=== PATIENT | female | born 1960 | race Caucasian/White ===

== ENCOUNTER 2016-04-14 10:41 | Emergency (ER) | payer BC, OTHER ==
[~2016-04-14] VITALS: Ht 157.5 cm; Wt 95.0 kg
[~2016-04-14 10:41] MED LIST: CLR10 PO; IBUP-1459 PO
[2016-04-14 10:46] VITALS: TEMP 36.5; Ht 157.5 cm; Wt 95.0 kg
[2016-04-14] MEDS ORDERED: HYDROCODONE/ACETAMOPHEN 5/325MG TAB PO STA (11:10)
[2016-04-14] MEDS ORDERED: HYDR-5688 PO (11:16)
[2016-04-14] MEDS ORDERED: ASPI-232 PO (11:26)
[2016-04-14 11:39] VITALS: BP 148/79; PULSE 78; O2SAT 100
--- NOTE | 2016-04-14 13:31 | EMERGENCY ROOM VISIT NOTE ---
History First contact with patient: 10:56 Chief Complaint: KNEEPAIN Stated Complaint: L KNEE PAIN History of Present Illness The patient is a 55 year old female who presents to the Emergency Room with complaints of left knee pain. The patient reports that she has had knee discomfort for the past 6 months. She has seen Dr. Woody, orthopedic surgeon in [place], who has done multiple studies, including an x-ray, ultrasound, and as of this morning, an MRI. The patient reports that she was at the [address] [place] [address], and after completing her MRI, was walking outside when she felt a pop in her knee. The patient now rates her discomfort a 10 out of 10. The patient denies any pain radiating into her back, and denies any paresthesias or numbness of the left lower extremity. The patient reports that she would rather see an orthopedic surgeon in [place] [employer] for further management. She also reports that staff at the [address] [place] [address] stated that they would fax her MRI report immediately upon notification. Review of Systems 10 system review was performed and was negative except for pertinent positives and negatives as indicated in history of present illness Past Medical/Surgical History Medical Problems: (1) Benign Parxysmal Vertigo (2) Lumbago (3) Migraine Unspecified W/O Intractable Migraine (4) Sciatica Surgical Problems: (1) No history of previous surgery Family History FH: cancer FH: diabetes mellitus FH: gallbladder disease FH: heart disease FH: kidney disease Social History Smoking Status: Never Smoker Alcohol Use: none Marital Status: Occupation Status: employed Current/Historical Medications Scheduled Aspirin (Aspir-81), 1 TAB PO DAILY Ibuprofen (Motrin), 400-600 MG PO PRN Loratadine (Claritin), 10 MG PO DAILY Allergies Coded Allergies: Morphine (Unverified Adverse Reaction, Mild, NAUSEA, SWEATS, 10/08/09) Physical Exam Vital Signs Date Time Temp Pulse Resp B/P Pulse Ox O2 Delivery O2 Flow Rate FiO2 04/14/16 11:39 78 16 148/79 100 04/14/16 10:46 36.5 89 18 168/88 100 Room Air Pain Rating (0-10): 4.0 Physical Exam CONSTITUTIONAL: Healthy and well nourished. Alert and oriented X 3 with positive affect. Patient does not appear in any acute distress. HEENT: Normocephalic, atraumatic. Pupils equal, round and reactive. NECK: Full active range of motion without discomfort. MUSCULOSKELETAL: Examination shows diffuse tenderness to palpation about the knee. She is most tender about the peripatellar region and anterolateral/ anteromedial knee joint. Positive anterior draw. Collateral ligaments are intact. Pedal pulses are intact. INTEGUMENTARY: No rash or other significant dermatologic conditions noted. NEUROLOGIC: Left foot and toes are sensory intact. Medical Decision & Procedures ER Provider Diagnostic Interpretation: Review of the patient's MRI report from the [address] [place] [address] shows a high-grade versus complete tear of the anterior cruciate ligament. No meniscal tear identified. Severe patellar chondrosis. Large joint effusion. Her CD was sent to radiology for upload to our system. Medications Administered Medications (Trade) Dose Ordered Sig/Nemo Route Start Time Stop Time Status Last Admin Dose Admin Acetaminophen/ Hydrocodone Bitart ([place] 5/325 Tab) 1 tab ONE STAT PO 04/14/16 11:10 04/14/16 11:11 DC 04/14/16 11:18 1 TAB ED Course Patient history and physical exam were performed. Nurse's notes were reviewed. The patient was administered [place] 5/325 for pain. Review of the patient's MRI is concerning for an anterior cruciate ligament disruption. A knee immobilizer and crutches were dispensed. The patient was instructed to follow- up with orthopedics for further reevaluation and management. The patient was provided a prescription for [place] 5/325, dispensed #24 with no refills, as needed for breakthrough pain. The patient was happy with plan of care, voiced understanding of all discharge instructions, and rated her pain a 3 out of 10 at the time of discharge. Impression Primary Impression: Tear, knee, anterior cruciate ligament Departure Information Dispostion Home / Self-Care Condition GOOD Referrals Andres Vargas M.D. Forms HOME CARE DOCUMENTATION FORM, IMPORTANT VISIT INFORMATION Patient Instructions My [facility] Additional Instructions Ice and elevate knee for swelling and pain. Ibuprofen 800 mg and/or Tylenol 1000 mg every 8 hours. You may also alternate these medications for more effective pain relief: Ibuprofen --4 HRS--> Tylenol --4 HRS--> ibuprofen --4 HRS--> Tylenol .... [place] as needed for additional pain relief. Do not drink or drive while taking [place]. Wear knee immobilizer and/or use crutches as needed. Follow-up with orthopedics for further evaluation and treatment - call for appointment. Problem Qualifiers Primary Impression: Tear, knee, anterior cruciate ligament Encounter type: initial encounter Laterality: left Qualified Codes: S83.512A - Sprain of anterior cruciate ligament of left knee, initial encounter
== END 2016-04-14 11:49 | disposition home or self-care (01) ==
LOC: C.EDB 10:43 → C.EDD 11:49
DX: S83.512A Sprain of anterior cruciate ligament of left knee, initial encounter (principal); X58.XXXA Exposure to other specified factors, initial encounter; Z98.890 Other specified postprocedural states; Z88.5 Allergy status to narcotic agent; Z79.82 Long term (current) use of aspirin; Z79.899 Other long term (current) drug therapy; Z80.9 Family history of malignant neoplasm, unspecified; Z83.3 Family history of diabetes mellitus; Z83.79 Family history of other diseases of the digestive system; Z84.1 Family history of disorders of kidney and ureter

== ENCOUNTER → 2017-03-01 | Outpatient (CLI) | payer OTHER ==
[~2017-03-01] MED LIST changes: +ACET-1487 PO; +ASPI-232 PO; +CALC-51 PO; +CYAN100020 PO; +MTR/600 PO
--- NOTE | 2017-03-02 14:37 | MAMMOGRAPHY REPORT ---
BILATERAL DIGITAL SCREENING MAMMOGRAM TOMOSYNTHESIS WITH CAD: 03/01/2017 CLINICAL HISTORY: Routine screening. Patient has no complaints. TECHNIQUE: Breast tomosynthesis in addition to standard 2D mammography was performed. Current study was also evaluated with a Computer Aided Detection (CAD) system. COMPARISON: Comparison is made to exams dated: 02/25/2016 mammogram, 02/23/2015 mammogram, 4 mammogram, 02/14/2013 mammogram, 02/13/2012 mammogram, and 02/09/2012 mammogram - [facility]. BREAST COMPOSITION: There are scattered areas of fibroglandular density in both breasts. FINDINGS: The parenchymal pattern is unchanged. No developing mass, architectural distortion or clus ter of suspicious microcalcifications is seen in either breast. IMPRESSION: ACR BI-RADS CATEGORY 2: BENIGN There is no mammographic evidence of malignancy. A 1 year screening mammogram is recommended. The pa tient will receive written notification of the results. Approximately 10% of breast cancers are not detected with mammography. A negative mammographic report should not delay biopsy if a clinically suggestive mass is present. Mackenzie Perera M.D. ay/:03/01/2017 16:23:21 [employer] Architect: Marcella ADKINS(Alessandra)(Caitlyn)(BD), [facility] letter sent: Normal 1/2 BI-RADS Code: ACR BI-RADS Category 2: Benign
== END | disposition home or self-care (01) ==
LOC: C.MAMM 16:00
PROVIDERS: ATTEND Family Medicine
DX: Z12.31 Encounter for screening mammogram for malignant neoplasm of breast (principal)

== ENCOUNTER 2017-03-19 08:49 | Inpatient (IN) | payer OTHER ==
[~2017-03-19] VITALS: Ht 157.5 cm; Wt 96.4 kg
[~2017-03-19 08:49] MED LIST changes: -ACET-1487 PO; -CALC-51 PO; -CYAN100020 PO; -MTR/600 PO
[2017-03-19] MEDS ORDERED: ONDANSETRON INJ 2 MG/ML 2 ML VIAL IV STA (09:13)
[2017-03-19] MEDS ORDERED: FAMOTIDINE 20MG/5ML IV PUSH IV STA (09:13)
[2017-03-19] MEDS ORDERED: SODIUM CHLORIDE 0.9% 1000ML 1,000 ML IV STA (09:13)
[2017-03-19 09:36] LABS: BASO % 0.1 %; BASO ABS # 0.01 K/uL (0-0.2); HEMATOCRIT 43.7 % (37-47); HEMOGLOBIN 14.9 g/dL (12.0-16.0); IG# 0.03 K/uL (0.00-0.02); LYMPH % 9.7 %; MEAN CELL VOLUME 88.3 fL (80-100); MEAN CORPUSCULAR HEMOGLOBIN 30.1 pg (25-34); MEAN CORPUSCULAR HGB CONC 34.1 g/dl (32-36); MEAN PLATELET VOLUME 9.4 fL (7.4-10.4); MONO % 3.6 %; MONO ABS # 0.37 K/uL (0.11-0.59); NEUT % 86.3 %; NEUT ABS # 8.92 K/uL (1.4-6.5); PLATELET COUNT 330 K/uL (130-400); RED CELL DISTRIBUTION WIDTH CV 12.9 % (11.5-14.5); RED CELL DISTRIBUTION WIDTH SD 41.6 fL (36.4-46.3); WHITE BLOOD COUNT 10.33 K/uL (4.8-10.8)
[2017-03-19 09:53] LABS: ALBUMIN 3.6 gm/dl (3.4-5.0); ALT/SGPT 22 U/L (12-78); AST/SGOT 14 U/L (15-37); BLOOD UREA NITROGEN 17 mg/dl (7-18); CALCIUM 9.1 mg/dl (8.5-10.1); CARBON DIOXIDE 32 mmol/L (21-32); CREATININE 0.99 mg/dl (0.60-1.20); GLUCOSE 137 mg/dl (70-99); LIPASE 67 U/L (73-393); POTASSIUM 3.7 mmol/L (3.5-5.1); SODIUM 137 mmol/L (136-145)
[2017-03-19 09:55] LABS: PTT PATIENT 22.6 SECONDS (21.0-31.0)
[2017-03-19 09:58] LABS: ALKALINE PHOSPHATASE 113 U/L (45-117); TOTAL PROTEIN 7.8 gm/dl (6.4-8.2)
--- NOTE | 2017-03-19 10:22 | DIAGNOSTIC IMAGING REPORT ---
PA CHEST RADIOGRAPH AND UPRIGHT AND SUPINE AP RADIOGRAPHS OF THE ABDOMEN CLINICAL HISTORY: Epigastric pain, nausea, vomiting and fever. COMPARISON STUDY: Chest radiograph June 28, 2012. FINDINGS: Lung volumes are at the lower limits of normal. This is unchanged. There is no consolidation or evidence for pulmonary edema. Cardiomediastinal silhouette is normal. There is no free air. Multiple loops of mildly dilated small bowel are noted. There is a paucity of colonic and rectal gas. Pelvic calcifications likely reflect phleboliths. IMPRESSION: 1. Multiple loops of mildly dilated small bowel which may reflect a partial small bowel obstruction or ileus. 2. No free air. 3. No acute cardiopulmonary findings. Electronically signed by: Parker العلي M.D. 03/19/2017 10:21 AM Dictated Date/Time: 03/19/2017 10:19 AM
[2017-03-19] MEDS ORDERED: CALC-51 PO (10:56)
[2017-03-19] MEDS ORDERED: CYAN100020 PO (10:56)
[2017-03-19] MEDS ORDERED: PROMETHAZINE HCL INJ 25 MG in SODIUM CHLORIDE 0.9% 50ML 50 ML IV STA (11:09)
[2017-03-19] MEDS ORDERED: OPTIRAY 320 IV PRN (11:15)
--- NOTE | 2017-03-19 12:06 | DIAGNOSTIC IMAGING REPORT ---
CT ANGIOGRAM OF THE CHEST CLINICAL HISTORY: Atypical chest pain. COMPARISON STUDY: Chest x-ray dated 03/17/2017. TECHNIQUE: Following the IV administration of 93 cc of Optiray 320, CT angiogram of the chest was performed from the upper abdomen to the thoracic inlet utilizing the pulmonary embolus protocol. Images are reviewed in the axial, sagittal, and coronal planes. 3-D MIPS images are created and assessed. IV contrast was administered without complication. A dose lowering technique was utilized adhering to the principles of ALARA. FINDINGS: Thyroid: Imaged portions of the thyroid gland are normal in size and attenuation. Thoracic aorta: The thoracic aorta is normal in caliber and demonstrates standard 3-vessel arch anatomy. No dissection is seen. Pulmonary vasculature: The pulmonary trunk is normal in caliber. There are no filling defects identified in main, lobar, or segmental pulmonary branches to suggest pulmonary embolus. Heart: The heart is enlarged and without pericardial effusion. Lungs and pleural spaces: Evaluation of the lung parenchyma is modestly degraded by motion artifact. No airspace consolidation or pleural effusion is seen. The trachea and central airways are patent. Mediastinum: There is no mediastinal lymphadenopathy. Ankita: Clear. Axillae: There is no axillary lymphadenopathy. Upper abdomen: Partially visualized upper abdominal viscera is within normal limits. Skeletal structures: The skeletal structures are osteopenic. No lytic or blastic bony lesions are seen. IMPRESSION: 1. There is no evidence of pulmonary embolus in the main, lobar, or segmental pulmonary arteries. 2. There is no airspace consolidation or pleural effusion. 3. Cardiomegaly. Electronically signed by: Reed Osorio M.D. 03/19/2017 12:05 PM Dictated Date/Time: 03/19/2017 12:02 PM
--- NOTE | 2017-03-19 12:08 | DIAGNOSTIC IMAGING REPORT ---
ABDOMEN AND PELVIS CT WITH IV CONTRAST CT DOSE: 1814.70 mGy.cm HISTORY: Diffuse abdominal pain. Abnormal x-ray. TECHNIQUE: Multiaxial CT images of the abdomen and pelvis were performed following the use of intravenous contrast. A dose lowering technique was utilized adhering to the principles of ALARA. COMPARISON STUDY: None. FINDINGS: The lung bases are clear. No pneumoperitoneum. No pneumatosis. The liver, gallbladder, spleen, adrenal glands, pancreas, and kidneys are within normal limits. Small right peripelvic renal cysts. No hydronephrosis. No retroperitoneal lymphadenopathy. The bladder is decompressed. The uterus and bilateral ovaries are unremarkable. Trace pelvic ascites. A few colonic diverticula. Normal appendix. Multiple mildly dilated fluid-filled loops of small bowel within the abdomen. Transition point seen within the right lower quadrant of the small bowel on image 368 within the distal ileum. Therefore, these findings are consistent with a small bowel obstruction. The small bowel distended up to 3.1 cm. IMPRESSION: Small bowel obstruction with the transition point seen within the right lower quadrant within the distal ileum. The small bowel loops are only mildly distended at this time. Electronically signed by: Augustus Collado M.D. 03/19/2017 12:06 PM Dictated Date/Time: 03/19/2017 11:51 AM
[2017-03-19 13:15] VITALS: O2SAT 95; Ht 157.5 cm; Wt 96.4 kg
[2017-03-19] MEDS ORDERED: ACET-1487 PO (13:15)
[2017-03-19] MEDS ORDERED: ACETAMINOPHEN 325 MG TAB PO PRN (13:15)
[2017-03-19] MEDS ORDERED: ONDANSETRON INJ 2 MG/ML 2 ML VIAL IV PRN (13:15)
[2017-03-19] MEDS ORDERED: MTR/600 PO (13:15)
--- NOTE | 2017-03-19 13:16 | Gastrointestinal Consultation ---
Gastrointestinal Consultation Date of Consultation: Mar 19, 2017 Attending Physician: Radha Consulting Physician: Dominguez Reason for Consultation: SBO History of Present Illness Patient is a 56 year old female w/ history of IBS-C on miralax and citrucel w/ others listed below who presented to the ER for evaluation of abd pain, nausea, fever. Pt was seen and evaluated in the ED, chart reviewed. is at bedside. NG is in place. Pt notes chronic lower GI issues w/ intermittent flares of her symptoms. Typically moves her bowels once daily, formed stool w/o any bleeding. She can have episodes about every other month that include severe abd pain, nausea, vomiting and abd distention. She notes she typically makes herself NPO and episodes pass within a 12 hours. However, this episode was more severe. Abd pain was generalized, sharp pressure. Associated w/ two nocturnal BMs, loose. Not bloody or black. Now w/ inability to have BM or pass gas. Notes severe nausea w/ a few bouts of emesis (all bile). Has associated chills. No documented fever. No sick contacts. No CP, SOB. In the ED, pt is afebrile, w/ stable VS. WBC: 10.3, kidney function WNL. LFTs and lipase non-elevated. CT ABD/pelvis w/ SBO and transition point within the distal ileum. NG is in place. History of abd surgery: none Family history of IBD: none CT ABD/Pelvis: Small bowel obstruction with the transition point seen within the right lower quadrant within the distal ileum. The small bowel loops are only mildly distended at this time. Chest CTA: There is no evidence of pulmonary embolus in the main, lobar, or segmental pulmonary arteries. There is no airspace consolidation or pleural effusion. Cardiomegaly. KUB: Multiple loops of mildly dilated small bowel which may reflect a partial small bowel obstruction or ileus. No free air. No acute cardiopulmonary findings. Colonoscopy 12/31/15: Diverticulosis in the sigmoid colon. No specimens collected. Otherwise normal to the terminal ileum, with retroflexed views of the ascending colon and rectum Colonoscopy 04/09/14: Diverticulosis in the sigmoid colon. Otherwise normal to the terminal ileum, with retroflexed views of the ascending colon and rectum. Colonoscopy 04/06/11: One 7 mm polyp in the distal sigmoid colon. Resected and retrieved.One 3 mm polyp in the distal sigmoid colon. Complete resection. Polyp tissue not retrieved. Otherwise normal to the terminal ileum, with retroflexed views of the ascending colon and rectum. Past Medical/Surgical History Medical Problems: (1) Tear, knee, anterior cruciate ligament Status: Acute Past Medical History: colon polyps, IBS-C, ASCUS, migraines Past Surgical History: colonoscopy x 3, carpal tunnel repair, Family History FH: cancer FH: diabetes mellitus FH: gallbladder disease FH: heart disease FH: kidney disease Social History Smoking Status: Never Smoker Alcohol Use: none Marital Status: Occupation Status: employed Allergies Coded Allergies: Morphine (Unverified Adverse Reaction, Mild, NAUSEA, SWEATS, 03/19/17) Current Medications Home Meds and Scripts Medications Dose Route/Sig Max Daily Dose Days Date Category Calcium (Calcium Carbonate-Vitamin D) 1 Tab Tab 1 Tab PO DAILY 03/19/17 Reported Vitamin B12 (Cyanocobalamin) 1,000 Mcg Tab 1,000 Mg PO DAILY 03/19/17 Reported Aspir-81 (Aspirin) 81 Mg Tab 1 Tab PO DAILY 90 04/14/16 Reported Claritin (Loratadine) 10 Mg Tab 10 Mg PO DAILY 08/16/08 Reported Review of Systems Constitutional: + chills, No fever, No weight loss Respiratory: No cough, No shortness of breath Cardiac: No chest pain, No edema Abdomen: + pain, + nausea, No vomiting, No diarrhea, No constipation, No GI bleeding Physical Exam Date Time Temp Pulse Resp B/P (MAP) Pulse Ox O2 Delivery O2 Flow Rate FiO2 03/19/17 13:08 88 20 152/97 95 03/19/17 13:07 96 03/19/17 11:50 84 18 123/57 98 Room Air 03/19/17 10:38 78 20 155/81 95 Room Air 03/19/17 09:48 80 03/19/17 09:38 82 18 131/81 93 Room Air 03/19/17 09:32 95 Room Air 03/19/17 08:54 36.4 95 18 128/88 99 Room Air General Appearance: no apparent distress ( at bedside, NG in place) Eyes: PERRL ENT: hearing grossly normal Neck: supple Respiratory/Chest: lungs clear, normal breath sounds, no respiratory distress Cardiovascular: regular rate, rhythm, no gallop Abdomen: normal bowel sounds, no organomegaly, no pulsatile mass, + distended ( mild distention), + tenderness (generalized x 4 quadrants) Neurologic/Psych: alert, normal mood/affect, oriented x 3 Skin: normal color, no rash Laboratory Results Last 24 Hours Test 03/19/17 09:22 03/19/17 11:35 White Blood Count 10.33 K/uL Red Blood Count 4.95 M/uL Hemoglobin 14.9 g/dL Hematocrit 43.7 % Mean Corpuscular Volume 88.3 fL Mean Corpuscular Hemoglobin 30.1 pg Mean Corpuscular Hemoglobin Concent 34.1 g/dl Platelet Count 330 K/uL Mean Platelet Volume 9.4 fL Neutrophils (%) (Auto) 86.3 % Lymphocytes (%) (Auto) 9.7 % Monocytes (%) (Auto) 3.6 % Eosinophils (%) (Auto) 0.0 % Basophils (%) (Auto) 0.1 % Neutrophils # (Auto) 8.92 K/uL Lymphocytes # (Auto) 1.00 K/uL Monocytes # (Auto) 0.37 K/uL Eosinophils # (Auto) 0.00 K/uL Basophils # (Auto) 0.01 K/uL RDW Standard Deviation 41.6 fL RDW Coefficient of Variation 12.9 % Immature Granulocyte % (Auto) 0.3 % Immature Granulocyte # (Auto) 0.03 K/uL Prothrombin Time 10.2 SECONDS Prothromb Time International Ratio 1.0 Activated Partial Thromboplast Time 22.6 SECONDS Partial Thromboplastin Ratio 0.9 D-Dimer 1280 ug/L FEU Sodium Level 137 mmol/L Potassium Level 3.7 mmol/L Chloride Level 102 mmol/L Carbon Dioxide Level 32 mmol/L Anion Gap 3.0 mmol/L Blood Urea Nitrogen 17 mg/dl Creatinine 0.99 mg/dl Est Creatinine Clear Calc Drug Dose 68.7 ml/min Estimated GFR () 73.8 Estimated GFR (Non- 63.7 BUN/Creatinine Ratio 17.6 Random Glucose 137 mg/dl Calcium Level 9.1 mg/dl Total Bilirubin 0.8 mg/dl Direct Bilirubin 0.1 mg/dl Aspartate Amino Transf (AST/SGOT) 14 U/L Alanine Aminotransferase (ALT/SGPT) 22 U/L Alkaline Phosphatase 113 U/L Total Creatine Kinase 60 U/L Troponin I < 0.015 ng/ml Total Protein 7.8 gm/dl Albumin 3.6 gm/dl Lipase 67 U/L Urine Color YELLOW Urine Appearance CLEAR Urine pH 7.0 Urine Specific [place] 1.025 Urine Protein NEG Urine Glucose (UA) NEG Urine Ketones TRACE Urine Occult Blood NEG Urine Nitrite NEG Urine Bilirubin NEG Urine Urobilinogen NEG Urine Leukocyte Esterase NEG Impression Patient is a 56 year old female w/ history of IBS-C w/ intermittent bouts of abd pain, nausea, vomiting who presented through the ED with acute onset generalized abd pain associated w/ two nocturnal BMs that were loose w/ nausea and vomiting. Imaging is concerning for SBO w/ transition point and terminal ileum. Surgery consulted. Her recurrent intermittent symptoms will need to be further evaluated. Inflammation vs occult neoplasm vs stricture vs volvulus vs foreign body vs intussusception vs other. No history of abd operations, adhesive disease unlikely Plan - SBO management per surgery - NPO - NG to intermittent suction - Anti-emetics PRN - Analgesia PRN - Daily KUB - IVF for hydration - Small bowel follow through w/ gastrografin prior to discharge - Outpatient endoscopic evaluation - GI will follow, please call with any questions, concerns, acute changes I saw and evaluated the patient with Crow Marcgiselaolivierlinda. The patient presented with signs and symptoms consistent with SBO as noted on her recent imaging study. Her past GI history is notable for IBS-C (Followed by Dr. Celeste and ms. Jonnathan torres in the past). PE NAD Mild abdominal distension Impression: Patient presents with SBO, no mass noted on imaging. I would agree with conservative therapy (IV hydration and NGT suction) as you are doing. At this time there is no role for endoscopic interventions. Please call with any questions or concerns (GI to sign off)
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
[2017-03-19] MEDS ORDERED: KETOROLAC TROMETHAMINE 30 MG/ML VIAL IV PRN (14:15)
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
[2017-03-19] MEDS ORDERED: MEPERIDINE HCL 25 MG/ML CARP IV PRN (15:00)
--- NOTE | 2017-03-19 15:13 | DIAGNOSTIC IMAGING REPORT ---
KUB CLINICAL HISTORY: Enteric tube placement. FINDINGS: 2 AP, portable, supine abdominal radiographs are correlated with abdominal CT dated 03/19/2017. An enteric tube has been placed. The tip terminates below the diaphragm and projects over the gastric fundus. There is evidence of persistent small bowel obstruction. No evidence of intraperitoneal free air is seen on these supine views. Excreted contrast is present within the renal collecting system and bladder. The skeletal structures are osteopenic. The bony structures are grossly intact. IMPRESSION: 1. An enteric tube projects below the diaphragm with the tip overlying the gastric fundus. 2. There is evidence of persistent small bowel obstruction. Electronically signed by: Reed Osorio M.D. 03/19/2017 3:12 PM Dictated Date/Time: 03/19/2017 3:10 PM
[2017-03-19] MEDS ORDERED: IV FLUIDS COMPLETED PRN ×2 (16:00)
--- NOTE | 2017-03-19 16:43 | EMERGENCY ROOM VISIT NOTE ---
History First contact with patient: 08:54 Chief Complaint: ABDOMINAL PAIN Stated Complaint: ABD PAIN, V/D, CHILLS, FEVER History of Present Illness The patient is a 56 year old female who presents to the Emergency Room with complaints of upper/epigastric pain radiating into the central chest region. The patient reports that her symptoms started last evening around 8 PM. She had several episodes of nausea and vomiting. The patient reports that she did have a loose bowel movement this morning, but did have 2-3 normal bowel movements overnight. The patient reports a pressure sensation in the chest. Her reports that she was complaining of shortness of breath a few weeks ago. The patient denies history of cardiopulmonary disease. She does have a known history of GI issues with "a slow bowel transit". The patient currently does not take any chronic medications for her situation. She is under the management of [facility] gastroenterology. She takes MiraLAX on a regular basis. She has undergone colonoscopy studies, ultrasound and x-rays. She does report a strong family history of coronary artery disease. The patient reports that her pain is worsened when lying on her back, improvement sitting up. Ambulation does not worsen her discomfort. She denies any fevers or chills. She currently rates her discomfort a 6 out of 10. Review of Systems HEENT: Denies dizziness, visual problems, hearing loss, tinnitus. Denies difficulty swallowing or oral lesions. PULMONARY: Denies cough, shortness of breath, sputum production or hemoptysis. CARDIOVASCULAR: Denies palpitations, dyspnea on exertion, orthopnea or peripheral edema. GASTROINTESTINAL: See history of present illness. GENITOURINARY: Denies dysuria, frequency, urgency or nocturia. NEUROLOGIC: Denies history of epilepsy, CVA, TIA or chronic headaches. MUSCULOSKELETAL: Denies history of joint tenderness/swelling. SKIN: Denies rashes or lesions. PSYCHIATRIC: Denies history of depression or mental illness. ENDOCRINE: Denies history of diabetes or thyroid disorders. Past Medical/Surgical History Medical Problems: (1) Benign Parxysmal Vertigo (2) Hx of colonic polyps (3) IBS (irritable bowel syndrome) (4) Lumbago (5) Migraine (6) Migraine Unspecified W/O Intractable Migraine (7) Sciatica (8) Tear, knee, anterior cruciate ligament Surgical Problems: (1) History of mandibular surgery (2) No history of previous surgery Family History FH: cancer FH: diabetes mellitus FH: gallbladder disease FH: heart disease FH: kidney disease Hypertension Social History Smoking Status: Never Smoker Smokeless Tobacco Use: No Alcohol Use: none Drug Use: none Marital Status: Occupation Status: employed Current/Historical Medications Scheduled Acetaminophen (Tylenol Arthritis Ext Rel), 650 MG PO Q8H Aspirin (Aspir-81), 1 TAB PO DAILY Calcium Carbonate-Vitamin D (Calcium), 1 TAB PO DAILY Cyanocobalamin (Vitamin B12), 1,000 MG PO DAILY Ibuprofen (Ibuprofen), 1 TAB PO Q8 Loratadine (Claritin), 10 MG PO DAILY Physical Exam Vital Signs Date Time Temp Pulse Resp B/P (MAP) Pulse Ox O2 Delivery O2 Flow Rate FiO2 03/19/17 14:47 94 18 141/89 93 Room Air 03/19/17 13:15 95 Room Air 03/19/17 13:08 88 20 152/97 95 03/19/17 13:07 96 03/19/17 11:50 84 18 123/57 98 Room Air 03/19/17 10:38 78 20 155/81 95 Room Air 03/19/17 09:48 80 03/19/17 09:38 82 18 131/81 93 Room Air 03/19/17 09:32 95 Room Air 03/19/17 08:54 36.4 95 18 128/88 99 Room Air Physical Exam CONSTITUTIONAL: Healthy and well nourished. Alert and oriented X 3 with positive affect. Patient appears in mild discomfort with nausea. She does not appear acutely or toxic. HEENT: Normocephalic, atraumatic. Pupils equal, round and reactive. No scleral icterus or conjunctival injection/pallor. OROPHARYNX: No tonsillar hypertrophy or exudates. NECK: Full active range of motion without discomfort. RESPIRATORY: Clear to auscultation bilaterally with no wheezing, crackles, rhonchi or stridor. CARDIOVASCULAR: Regular rate and rhythm with no murmurs, rubs or gallops. GASTROINTESTINAL: Bowel sounds diminished in all quadrants. The patient has epigastric tenderness to palpation. No obvious hepatosplenomegaly. No rigidity , guarding or rebound. Negative CVA tenderness. Negative McBurney's point tenderness. MUSCULOSKELETAL: Full range of motion of all joints without discomfort. INTEGUMENTARY: No rash or other significant dermatologic conditions noted. HEMATOLOGIC: No ecchymosis or petechiae noted. NEUROLOGIC: No focal neurologic deficits noted. Medical Decision & Procedures ER Provider Diagnostic Interpretation: My interpretation of an ECG shows a normal sinus rhythm of [address] elevation or other conduction abnormalities. The patient did have a PVC noted. My interpretation of an abdomen obstruction series with PA chest shows a possible ileus versus partial small bowel obstruction. No pulmonary consolidations noted. Radiologist report is as follows: PA CHEST RADIOGRAPH AND UPRIGHT AND SUPINE AP RADIOGRAPHS OF THE ABDOMEN CLINICAL HISTORY: Epigastric pain, nausea, vomiting and fever. COMPARISON STUDY: Chest radiograph June 28, 2012. FINDINGS: Lung volumes are at the lower limits of normal. This is unchanged. There is no consolidation or evidence for pulmonary edema. Cardiomediastinal silhouette is normal. There is no free air. Multiple loops of mildly dilated small bowel are noted. There is a paucity of colonic and rectal gas. Pelvic calcifications likely reflect phleboliths. IMPRESSION: 1. Multiple loops of mildly dilated small bowel which may reflect a partial small bowel obstruction or ileus. 2. No free air. 3. No acute cardiopulmonary findings. Chest CT angiography is negative for pulmonary embolus or other acute intrathoracic findings. Radiologist report is as follows: CT ANGIOGRAM OF THE CHEST CLINICAL HISTORY: Atypical chest pain. COMPARISON STUDY: Chest x-ray dated 03/17/2017. TECHNIQUE: Following the IV administration of 93 cc of Optiray 320, CT angiogram of the chest was performed from the upper abdomen to the thoracic inlet utilizing the pulmonary embolus protocol. Images are reviewed in the axial, sagittal, and coronal planes. 3-D MIPS images are created and assessed. IV contrast was administered without complication. A dose lowering technique was utilized adhering to the principles of ALARA. FINDINGS: Thyroid: Imaged portions of the thyroid gland are normal in size and attenuation. Thoracic aorta: The thoracic aorta is normal in caliber and demonstrates standard 3-vessel arch anatomy. No dissection is seen. Pulmonary vasculature: The pulmonary trunk is normal in caliber. There are no filling defects identified in main, lobar, or segmental pulmonary branches to suggest pulmonary embolus. Heart: The heart is enlarged and without pericardial effusion. Lungs and pleural spaces: Evaluation of the lung parenchyma is modestly degraded by motion artifact. No airspace consolidation or pleural effusion is seen. The trachea and central airways are patent. Mediastinum: There is no mediastinal lymphadenopathy. [place]: Clear. Axillae: There is no axillary lymphadenopathy. Upper abdomen: Partially visualized upper abdominal viscera is within normal limits. Skeletal structures: The skeletal structures are osteopenic. No lytic or blastic bony lesions are seen. IMPRESSION: 1. There is no evidence of pulmonary embolus in the main, lobar, or segmental pulmonary arteries. 2. There is no airspace consolidation or pleural effusion. 3. Cardiomegaly. CT of the abdomen and pelvis with IV contrast only shows evidence for a small bowel obstruction with transition point within the terminal ileum. No other free air noted. Radiologist report is as follows: ABDOMEN AND PELVIS CT WITH IV CONTRAST CT DOSE: 1814.70 mGy.cm HISTORY: Diffuse abdominal pain. Abnormal x-ray. TECHNIQUE: Multiaxial CT images of the abdomen and pelvis were performed following the use of intravenous contrast. A dose lowering technique was utilized adhering to the principles of ALARA. COMPARISON STUDY: None. FINDINGS: The lung bases are clear. No pneumoperitoneum. No pneumatosis. The liver, gallbladder, spleen, adrenal glands, pancreas, and kidneys are within normal limits. Small right peripelvic renal cysts. No hydronephrosis. No retroperitoneal lymphadenopathy. The bladder is decompressed. The uterus and bilateral ovaries are unremarkable. Trace pelvic ascites. A few colonic diverticula. Normal appendix. Multiple mildly dilated fluid-filled loops of small bowel within the abdomen. Transition point seen within the right lower quadrant of the small bowel on image 368 within the distal ileum. Therefore, these findings are consistent with a small bowel obstruction. The small bowel distended up to 3.1 cm. IMPRESSION: Small bowel obstruction with the transition point seen within the right lower quadrant within the distal ileum. The small bowel loops are only mildly distended at this time. Laboratory Results 03/19/17 09:22 Red Blood Count 4.95, Mean Corpuscular Volume 88.3, Mean Corpuscular Hemoglobin 30.1, Mean Corpuscular Hemoglobin Concent 34.1, Mean Platelet Volume 9.4, Neutrophils (%) (Auto) 86.3, Lymphocytes (%) (Auto) 9.7, Monocytes (%) (Auto) 3.6, Eosinophils (%) (Auto) 0.0, Basophils (%) (Auto) 0.1, Neutrophils # (Auto) 8.92, Lymphocytes # (Auto) 1.00, Monocytes # (Auto) 0.37, Eosinophils # (Auto) 0.00, Basophils # (Auto) 0.01 03/19/17 09:22 Test 03/19/17 09:22 03/19/17 11:35 White Blood Count 10.33 K/uL (4.8-10.8) Red Blood Count 4.95 M/uL (4.2-5.4) Hemoglobin 14.9 g/dL (12.0-16.0) Hematocrit 43.7 % (37-47) Mean Corpuscular Volume 88.3 fL (80-100) Mean Corpuscular Hemoglobin 30.1 pg (25-34) Mean Corpuscular Hemoglobin Concent 34.1 g/dl (32-36) Platelet Count 330 K/uL (130-400) Mean Platelet Volume 9.4 fL (7.4-10.4) Neutrophils (%) (Auto) 86.3 % Lymphocytes (%) (Auto) 9.7 % Monocytes (%) (Auto) 3.6 % Eosinophils (%) (Auto) 0.0 % Basophils (%) (Auto) 0.1 % Neutrophils # (Auto) 8.92 K/uL (1.4-6.5) Lymphocytes # (Auto) 1.00 K/uL (1.2-3.4) Monocytes # (Auto) 0.37 K/uL (0.11-0.59) Eosinophils # (Auto) 0.00 K/uL (0-0.5) Basophils # (Auto) 0.01 K/uL (0-0.2) RDW Standard Deviation 41.6 fL (36.4-46.3) RDW Coefficient of Variation 12.9 % (11.5-14.5) Immature Granulocyte % (Auto) 0.3 % Immature Granulocyte # (Auto) 0.03 K/uL (0.00-0.02) Prothrombin Time 10.2 SECONDS (9.0-12.0) Prothromb Time International Ratio 1.0 (0.9-1.1) Activated Partial Thromboplast Time 22.6 SECONDS (21.0-31.0) Partial Thromboplastin Ratio 0.9 D-Dimer 1280 ug/L FEU (0-500) Anion Gap 3.0 mmol/L (3-11) Est Creatinine Clear Calc Drug Dose 68.7 ml/min Estimated GFR () 73.8 Estimated GFR (Non- 63.7 BUN/Creatinine Ratio 17.6 (10-20) Calcium Level 9.1 mg/dl (8.5-10.1) Total Bilirubin 0.8 mg/dl (0.2-1) Direct Bilirubin 0.1 mg/dl (0-0.2) Aspartate Amino Transf (AST/SGOT) 14 U/L (15-37) Alanine Aminotransferase (ALT/SGPT) 22 U/L (12-78) Alkaline Phosphatase 113 U/L (45-117) Total Creatine Kinase 60 U/L (26-192) Troponin I < 0.015 ng/ml (0-0.045) Total Protein 7.8 gm/dl (6.4-8.2) Albumin 3.6 gm/dl (3.4-5.0) Lipase 67 U/L (73-393) Hepatitis C Antibody Screen NEG (NEG) Urine Color YELLOW Urine Appearance CLEAR (CLEAR) Urine pH 7.0 (4.5-7.5) Urine Specific [place] 1.025 (1.000-1.030) Urine Protein NEG (NEG) Urine Glucose (UA) NEG (NEG) Urine Ketones TRACE (NEG) Urine Occult Blood NEG (NEG) Urine Nitrite NEG (NEG) Urine Bilirubin NEG (NEG) Urine Urobilinogen NEG (NEG) Urine Leukocyte Esterase NEG (NEG) The above labs were reviewed. The patient has no leukocytosis or other significant electrolyte abnormalities. Urinalysis is not suggestive of infection. Troponin is normal. D-dimer is elevated. Medications Administered Medications (Trade) Dose Ordered Sig/[place]emo Route Start Time Stop Time Status Last Admin Dose Admin Sodium Chloride 1,000 ml @ 999 mls/hr Q1H1M STAT IV 03/19/17 09:13 03/19/17 10:13 DC 03/19/17 09:31 999 MLS/HR Ondansetron HCl (Zofran Inj) 4 mg NOW STAT IV 03/19/17 09:13 03/19/17 09:17 DC 03/19/17 09:31 4 MG Famotidine (Pepcid 20mg Iv Push) 20 mg ONE STAT IV 03/19/17 09:13 03/19/17 09:17 DC 03/19/17 09:31 20 MG Promethazine HCl 25 mg/Sodium Chloride 51 ml @ 204 mls/hr NOW STAT IV 03/19/17 11:09 03/19/17 11:23 DC 03/19/17 11:24 204 MLS/HR Ondansetron HCl (Zofran Inj) 4 mg Q6H PRN IV 03/19/17 13:15 04/18/17 13:14 03/19/17 16:12 4 MG Ketorolac Tromethamine (Toradol Inj) 30 mg Q6H PRN IV 03/19/17 14:15 03/24/17 14:14 03/19/17 16:12 30 MG ED Course Patient history and physical exam were performed. Nurse's notes were reviewed. Vital signs were reviewed and were normal. IV access was established, and labs were drawn. The patient was administered IV Zofran for nausea. Review of labs shows an elevated d-dimer, otherwise remaining labs, including troponin, CBC, partial renal profile, LFTs and lipase are normal. An EKG was normal. Abdomen obstruction series with a PA chest view is suggestive of an ileus versus possible partial small bowel obstruction. The case was further discussed with Dr. Musa, ED attending physician, who suggested chest CT angiography, as well as IV contrast study of the abdomen and pelvis. Chest CT angiography was normal, showing no evidence for pulmonary emboli. CT of the abdomen and pelvis confirms a small bowel obstruction with transition point in the distal ileum. At this point, the case was further discussed with the [facility] hospitalist group. The patient will require additional GI and surgical consultation. The patient refused any analgesics before transfer of care to the hospitalist team. An NG tube was inserted by ED staff. Medical Decision Patient presents to the emergency department with complaint of abdominal pain. She does have CT findings today concerning for a small bowel obstruction. Is no evidence for perforation. The patient has not had any prior history of abdominal surgeries, therefore I do not suspect that he should've history. She denies history of endometriosis. [place] Drug Monitoring Program Search Results: patient reviewed within database Medication Reconcilliation Current Medication List: was personally reviewed by me Blood Pressure Screening Patient's blood pressure: Normal blood pressure Impression Primary Impression: SBO (small bowel obstruction) Departure Information Referrals Zee Ruano DO (PCP) Patient Instructions [facility]
[2017-03-19] MEDS: SODIUM CHLORIDE 0.9% 1000ML 1,000 ML IV SCH (17:20)
[2017-03-19 23:05] VITALS: BP 111/71; PULSE 88; TEMP 36.9; O2SAT 94
[2017-03-20] MEDS: SODIUM CHLORIDE 0.9% 1000ML 1,000 ML IV SCH ×4 (01:17→18:47)
[2017-03-20 06:07] LABS: HEMATOCRIT 36.3 % (37-47); HEMOGLOBIN 11.7 g/dL (12.0-16.0); MEAN CELL VOLUME 89.2 fL (80-100); MEAN CORPUSCULAR HEMOGLOBIN 28.7 pg (25-34); MEAN CORPUSCULAR HGB CONC 32.2 g/dl (32-36); MEAN PLATELET VOLUME 9.6 fL (7.4-10.4); PLATELET COUNT 282 K/uL (130-400); RED CELL DISTRIBUTION WIDTH CV 13.1 % (11.5-14.5); RED CELL DISTRIBUTION WIDTH SD 42.8 fL (36.4-46.3); WHITE BLOOD COUNT 7.87 K/uL (4.8-10.8)
--- NOTE | 2017-03-20 06:23 | Surgery Progress Note ---
Surgery Progress Note Date of Service Mar 20, 2017. Subjective awake , alert, minimal pain NG 100 cc/ shift Objective Vital Signs: Date Time Temp Pulse Resp B/P (MAP) Pulse Ox O2 Delivery O2 Flow Rate FiO2 03/19/17 23:05 36.9 88 18 111/71 (84) 94 Room Air 03/19/17 20:30 Room Air 03/19/17 16:15 Room Air 03/19/17 14:47 94 18 141/89 93 Room Air 03/19/17 13:15 95 Room Air 03/19/17 13:08 88 20 152/97 95 03/19/17 13:07 96 03/19/17 11:50 84 18 123/57 98 Room Air 03/19/17 10:38 78 20 155/81 95 Room Air 03/19/17 09:48 80 03/19/17 09:38 82 18 131/81 93 Room Air 03/19/17 09:32 95 Room Air 03/19/17 08:54 36.4 95 18 128/88 99 Room Air General Appearance: no apparent distress Respiratory/Chest: no respiratory distress Abdomen: soft (decreased bowel snds) Laboratory Results: Results Past 24 Hours Test 03/19/17 09:22 03/19/17 11:35 03/20/17 05:25 Range/Units White Blood Count 10.33 7.87 4.8-10.8 K/uL Red Blood Count 4.95 4.07 4.2-5.4 M/uL Hemoglobin 14.9 11.7 12.0-16.0 g/dL Hematocrit 43.7 36.3 37-47 % Mean Corpuscular Volume 88.3 89.2 80-100 fL Mean Corpuscular Hemoglobin 30.1 28.7 25-34 pg Mean Corpuscular Hemoglobin Concent 34.1 32.2 32-36 g/dl Platelet Count 330 282 130-400 K/uL Mean Platelet Volume 9.4 9.6 7.4-10.4 fL Neutrophils (%) (Auto) 86.3 % Lymphocytes (%) (Auto) 9.7 % Monocytes (%) (Auto) 3.6 % Eosinophils (%) (Auto) 0.0 % Basophils (%) (Auto) 0.1 % Neutrophils # (Auto) 8.92 1.4-6.5 K/uL Lymphocytes # (Auto) 1.00 1.2-3.4 K/uL Monocytes # (Auto) 0.37 0.11-0.59 K/uL Eosinophils # (Auto) 0.00 0-0.5 K/uL Basophils # (Auto) 0.01 0-0.2 K/uL RDW Standard Deviation 41.6 42.8 36.4-46.3 fL RDW Coefficient of Variation 12.9 13.1 11.5-14.5 % Immature Granulocyte % (Auto) 0.3 % Immature Granulocyte # (Auto) 0.03 0.00-0.02 K/uL Prothrombin Time 10.2 9.0-12.0 SECONDS Prothromb Time International Ratio 1.0 0.9-1.1 Activated Partial Thromboplast Time 22.6 21.0-31.0 SECONDS Partial Thromboplastin Ratio 0.9 D-Dimer 1280 0-500 ug/L FEU Sodium Level 137 136-145 mmol/L Potassium Level 3.7 3.5-5.1 mmol/L Chloride Level 102 98-107 mmol/L Carbon Dioxide Level 32 21-32 mmol/L Anion Gap 3.0 3-11 mmol/L Blood Urea Nitrogen 17 7-18 mg/dl Creatinine 0.99 0.60-1.20 mg/dl Est Creatinine Clear Calc Drug Dose 68.7 ml/min Estimated GFR () 73.8 Estimated GFR (Non- 63.7 BUN/Creatinine Ratio 17.6 10-20 Random Glucose 137 70-99 mg/dl Calcium Level 9.1 8.5-10.1 mg/dl Total Bilirubin 0.8 0.2-1 mg/dl Direct Bilirubin 0.1 0-0.2 mg/dl Aspartate Amino Transf (AST/SGOT) 14 15-37 U/L Alanine Aminotransferase (ALT/SGPT) 22 12-78 U/L Alkaline Phosphatase 113 45-117 U/L Total Creatine Kinase 60 26-192 U/L Troponin I < 0.015 0-0.045 ng/ml Total Protein 7.8 6.4-8.2 gm/dl Albumin 3.6 3.4-5.0 gm/dl Lipase 67 73-393 U/L Hepatitis C Antibody Screen NEG NEG Urine Color YELLOW Urine Appearance CLEAR CLEAR Urine pH 7.0 4.5-7.5 Urine Specific [place] 1.025 1.000-1.030 Urine Protein NEG NEG Urine Glucose (UA) NEG NEG Urine Ketones TRACE NEG Urine Occult Blood NEG NEG Urine Nitrite NEG NEG Urine Bilirubin NEG NEG Urine Urobilinogen NEG NEG Urine Leukocyte Esterase NEG NEG Assessment & Plan 03/20/17- ileus vs partial sbo- seems to be improved- try NG clamping ambulate- ice for now. check labs. no urgent surgical intervention needed at this point
[2017-03-20 06:46] LABS: ALBUMIN 2.7 gm/dl (3.4-5.0); CALCIUM 8.1 mg/dl (8.5-10.1); CREATININE 0.86 mg/dl (0.60-1.20); POTASSIUM 3.5 mmol/L (3.5-5.1)
[2017-03-20 06:51] LABS: PHOSPHORUS 3.1 mg/dl (2.5-4.9); TOTAL PROTEIN 5.9 gm/dl (6.4-8.2)
[2017-03-20 07:24] VITALS: BP 108/72; PULSE 89; TEMP 36.5; O2SAT 94
--- NOTE | 2017-03-20 08:42 | DIAGNOSTIC IMAGING REPORT ---
ABDOMEN 2 VIEWS HISTORY: Partial small bowel obstruction.Follow-up. COMPARISON: Abdominal CT 03/19/2017. FINDINGS: Nasogastric tube is curled within the fundus of the stomach. No pneumoperitoneum. No pneumatosis. A few mildly dilated gas and fluid-filled loops of small bowel are again noted within the midabdomen consistent with the history of a small bowel obstruction. Gas and stool remains within the colon. No renal or ureteral calculi. Multiple pelvic phleboliths. IMPRESSION: 1. No change in the mildly dilated gas and fluid-filled loops of small bowel consistent with a small bowel obstruction. 2. Nasogastric tube remains curled within the fundus of the stomach. Electronically signed by: Augustus Collado M.D. 03/20/2017 8:41 AM Dictated Date/Time: 03/20/2017 8:39 AM
[2017-03-20 09:04] LABS: HEMATOCRIT 38.3 % (37-47); HEMOGLOBIN 12.8 g/dL (12.0-16.0); MEAN CELL VOLUME 89.7 fL (80-100); MEAN PLATELET VOLUME 9.3 fL (7.4-10.4); PLATELET COUNT 280 K/uL (130-400); RED CELL DISTRIBUTION WIDTH CV 13.1 % (11.5-14.5); RED CELL DISTRIBUTION WIDTH SD 42.7 fL (36.4-46.3); WHITE BLOOD COUNT 7.92 K/uL (4.8-10.8)
[2017-03-20 09:09] LABS: MEAN CORPUSCULAR HGB CONC 33.4 g/dl (32-36)
[2017-03-20 15:46] VITALS: BP 143/82; PULSE 72; TEMP 36.9; O2SAT 93
--- NOTE | 2017-03-20 18:54 | Progress Note ---
Internal Med Progress Note Date of Service: Mar 20, 2017. Provider Documentation: SUBJECTIVE: Patient seen with NG tube OBJECTIVE: Exam: General- no distress ENT- NG tube Neck- midline trachea, no JVD Lungs- CTABL Heart- RRR Abdomen- soft, nontender, minimal bowel sounds Extremities- no edema Neuro- awake and alert ASSESSMENT & PLAN: 56F with hx of slow moving bowels presents with severe abdominal pain and nausea and vomiting Patient has been evaluated by gastroenterology service and general surgery service Recent Abdomen X ray 03/20/17 1. No change in the mildly dilated gas and fluid-filled loops of small bowel consistent with a small bowel obstruction. 2. Nasogastric tube remains curled within the fundus of the stomach. CT ABD/Pelvis: Small bowel obstruction with the transition point seen within the right lower quadrant within the distal ileum. The small bowel loops are only mildly distended at this time. Chest CTA: There is no evidence of pulmonary embolus in the main, lobar, or segmental pulmonary arteries. There is no airspace consolidation or pleural effusion. Cardiomegaly. KUB: Multiple loops of mildly dilated small bowel which may reflect a partial small bowel obstruction or ileus. No free air. No acute cardiopulmonary findings. Plan: Continue NG tube suctioning, IV hydration, antiemetics. Continue to monitor for symptoms and if having bowel movements or flatus DVT ppx: SCDs Vital Signs: Date Time Temp Pulse Resp B/P (MAP) Pulse Ox O2 Delivery O2 Flow Rate FiO2 03/20/17 15:46 36.9 72 18 143/82 (102) 93 Room Air 03/20/17 15:45 Room Air 03/20/17 08:00 Room Air 03/20/17 07:24 36.5 89 18 108/72 (84) 94 Room Air 03/19/17 23:05 36.9 88 18 111/71 (84) 94 Room Air 03/19/17 20:30 Room Air Lab Results: Results Past 24 Hours Test 03/20/17 05:25 03/20/17 08:49 Range/Units White Blood Count 7.87 7.92 4.8-10.8 K/uL Red Blood Count 4.07 4.27 4.2-5.4 M/uL Hemoglobin 11.7 12.8 12.0-16.0 g/dL Hematocrit 36.3 38.3 37-47 % Mean Corpuscular Volume 89.2 89.7 80-100 fL Mean Corpuscular Hemoglobin 28.7 30.0 25-34 pg Mean Corpuscular Hemoglobin Concent 32.2 33.4 32-36 g/dl RDW Standard Deviation 42.8 42.7 36.4-46.3 fL RDW Coefficient of Variation 13.1 13.1 11.5-14.5 % Platelet Count 282 280 130-400 K/uL Mean Platelet Volume 9.6 9.3 7.4-10.4 fL Sodium Level 142 136-145 mmol/L Potassium Level 3.5 3.5-5.1 mmol/L Chloride Level 110 98-107 mmol/L Carbon Dioxide Level 27 21-32 mmol/L Anion Gap 5.0 3-11 mmol/L Blood Urea Nitrogen 19 7-18 mg/dl Creatinine 0.86 0.60-1.20 mg/dl Est Creatinine Clear Calc Drug Dose 79.1 ml/min Estimated GFR () 87.5 Estimated GFR (Non- 75.5 BUN/Creatinine Ratio 22.3 10-20 Random Glucose 94 70-99 mg/dl Calcium Level 8.1 8.5-10.1 mg/dl Phosphorus Level 3.1 2.5-4.9 mg/dl Magnesium Level 2.1 1.8-2.4 mg/dl Total Bilirubin 0.8 0.2-1 mg/dl Aspartate Amino Transf (AST/SGOT) 10 15-37 U/L Alanine Aminotransferase (ALT/SGPT) 16 12-78 U/L Alkaline Phosphatase 80 45-117 U/L Total Protein 5.9 6.4-8.2 gm/dl Albumin 2.7 3.4-5.0 gm/dl Globulin 3.2 2.5-4.0 gm/dl Albumin/Globulin Ratio 0.8 0.9-2
[2017-03-20] MEDS ORDERED: NURSING VERBAL MED ORDER ONE (19:30)
[2017-03-20 23:15] VITALS: BP 122/79; PULSE 79; TEMP 37.1; O2SAT 94
[2017-03-21 00:05] VITALS: O2SAT 94
[2017-03-21] MEDS ORDERED: SODIUM CHLORIDE 0.9% 1000ML 1,000 ML IV SCH (02:30)
--- NOTE | 2017-03-21 06:35 | Surgery Progress Note ---
Surgery Progress Note Date of Service Mar 21, 2017. Subjective min pain, passing flatus she wants to try liquids Objective Vital Signs: Date Time Temp Pulse Resp B/P (MAP) Pulse Ox O2 Delivery O2 Flow Rate FiO2 03/21/17 00:05 94 Room Air 03/20/17 23:15 37.1 79 16 122/79 (93) 94 Room Air 03/20/17 15:46 36.9 72 18 143/82 (102) 93 Room Air 03/20/17 15:45 Room Air 03/20/17 08:00 Room Air 03/20/17 07:24 36.5 89 18 108/72 (84) 94 Room Air General Appearance: no apparent distress Respiratory/Chest: no respiratory distress Abdomen: + pertinent finding (has bowel sounds) Laboratory Results: Results Past 24 Hours Test 03/20/17 08:49 03/21/17 04:44 Range/Units White Blood Count 7.92 4.8-10.8 K/uL Red Blood Count 4.27 4.2-5.4 M/uL Hemoglobin 12.8 12.0-16.0 g/dL Hematocrit 38.3 37-47 % Mean Corpuscular Volume 89.7 80-100 fL Mean Corpuscular Hemoglobin 30.0 25-34 pg Mean Corpuscular Hemoglobin Concent 33.4 32-36 g/dl RDW Standard Deviation 42.7 36.4-46.3 fL RDW Coefficient of Variation 13.1 11.5-14.5 % Platelet Count 280 130-400 K/uL Mean Platelet Volume 9.3 7.4-10.4 fL Assessment & Plan 03/21/17- will d/c NG tube and try some clear liquids continue ambulation. Check labs 03/20/17- ileus vs partial sbo- seems to be improved- try NG clamping ambulate- ice for now. check labs. no urgent surgical intervention needed at this point 03/20/17- ileus vs partial sbo- seems to be improved- try NG clamping ambulate- ice for now. check labs. no urgent surgical intervention needed at this point
[2017-03-21 07:30] VITALS: O2SAT 93
[2017-03-21 07:43] VITALS: BP 129/73; PULSE 77; TEMP 37; O2SAT 93
[2017-03-21 07:56] LABS: BASO % 0.3 %; BASO ABS # 0.02 K/uL (0-0.2); EOS % 1.1 %; EOS ABS # 0.09 K/uL (0-0.5); HEMATOCRIT 36.1 % (37-47); HEMOGLOBIN 12.1 g/dL (12.0-16.0); IG# 0.02 K/uL (0.00-0.02); LYMPH % 33.2 %; LYMPH ABS # 2.65 K/uL (1.2-3.4); MEAN CELL VOLUME 88.3 fL (80-100); MEAN CORPUSCULAR HEMOGLOBIN 29.6 pg (25-34); MEAN CORPUSCULAR HGB CONC 33.5 g/dl (32-36); MEAN PLATELET VOLUME 9.3 fL (7.4-10.4); MONO % 5.5 %; MONO ABS # 0.44 K/uL (0.11-0.59); NEUT % 59.6 %; NEUT ABS # 4.75 K/uL (1.4-6.5); PLATELET COUNT 265 K/uL (130-400); RED CELL DISTRIBUTION WIDTH CV 12.8 % (11.5-14.5); RED CELL DISTRIBUTION WIDTH SD 41.2 fL (36.4-46.3); WHITE BLOOD COUNT 7.97 K/uL (4.8-10.8)
[2017-03-21 08:30] LABS: ALBUMIN 2.8 gm/dl (3.4-5.0); CALCIUM 8.6 mg/dl (8.5-10.1); CREATININE 0.62 mg/dl (0.60-1.20); POTASSIUM 3.2 mmol/L (3.5-5.1); TOTAL PROTEIN 6.2 gm/dl (6.4-8.2)
[2017-03-21] MEDS ORDERED: NURSING VERBAL MED ORDER ONE (10:15)
[2017-03-21] MEDS ORDERED: POTASSIUM CHLORIDE 20 MEQ TABCR PO ONE (15:30)
[2017-03-21 15:50] VITALS: BP 141/85; PULSE 75; TEMP 36.9; O2SAT 99
--- NOTE | 2017-03-21 15:51 | Progress Note ---
Internal Med Progress Note Date of Service: Mar 21, 2017. Provider Documentation: SUBJECTIVE: Patient had NG tube removed this AM and then had made a bowel movement OBJECTIVE: Exam: General- no distress Neck- midline trachea, no JVD Lungs- CTABL Heart- RRR Abdomen- soft, nontender, minimal bowel sounds Extremities- no edema Neuro- awake and alert ASSESSMENT & PLAN: 56F with hx of slow moving bowels presents with severe abdominal pain and nausea and vomiting and evaluated/treated for small bowel obstruction Patient has been evaluated by gastroenterology service and general surgery service 03/19/17 KUB: Multiple loops of mildly dilated small bowel which may reflect a partial small bowel obstruction or ileus. No free air. No acute cardiopulmonary findings. CT ABD/Pelvis: Small bowel obstruction with the transition point seen within the right lower quadrant within the distal ileum. The small bowel loops are only mildly distended at this time. Chest CTA: There is no evidence of pulmonary embolus in the main, lobar, or segmental pulmonary arteries. There is no airspace consolidation or pleural effusion. Cardiomegaly. Abdomen X ray 03/20/17 1. No change in the mildly dilated gas and fluid-filled loops of small bowel consistent with a small bowel obstruction. 2. Nasogastric tube remains curled within the fundus of the stomach. Patient had NG tube removed this AM and then had made a bowel movement on Patient's AM labs on 03/21/17 with hypokalemia 3.2. Patient given 60 meq PO potassium Patient to be discharged to home. Follow up appointment 03/26/2017 11:20 AM Zee Ruano [facility] Patient's instructions: Patient should return to the hospital if acute abdominal pain, acute vomiting. Patient advised to avoid narcotic/opioid medications as these types of medications can slow bowl movements Vital Signs: Date Time Temp Pulse Resp B/P (MAP) Pulse Ox O2 Delivery O2 Flow Rate FiO2 03/21/17 15:50 36.9 75 18 141/85 (103) 99 Room Air 03/21/17 07:43 37.0 77 18 129/73 (91) 93 Room Air 03/21/17 07:30 93 Room Air 03/21/17 00:05 94 Room Air 03/20/17 23:15 37.1 79 16 122/79 (93) 94 Room Air Lab Results: Results Past 24 Hours Test 03/21/17 07:17 Range/Units White Blood Count 7.97 4.8-10.8 K/uL Red Blood Count 4.09 4.2-5.4 M/uL Hemoglobin 12.1 12.0-16.0 g/dL Hematocrit 36.1 37-47 % Mean Corpuscular Volume 88.3 80-100 fL Mean Corpuscular Hemoglobin 29.6 25-34 pg Mean Corpuscular Hemoglobin Concent 33.5 32-36 g/dl Platelet Count 265 130-400 K/uL Mean Platelet Volume 9.3 7.4-10.4 fL Neutrophils (%) (Auto) 59.6 % Lymphocytes (%) (Auto) 33.2 % Monocytes (%) (Auto) 5.5 % Eosinophils (%) (Auto) 1.1 % Basophils (%) (Auto) 0.3 % Neutrophils # (Auto) 4.75 1.4-6.5 K/uL Lymphocytes # (Auto) 2.65 1.2-3.4 K/uL Monocytes # (Auto) 0.44 0.11-0.59 K/uL Eosinophils # (Auto) 0.09 0-0.5 K/uL Basophils # (Auto) 0.02 0-0.2 K/uL RDW Standard Deviation 41.2 36.4-46.3 fL RDW Coefficient of Variation 12.8 11.5-14.5 % Immature Granulocyte % (Auto) 0.3 % Immature Granulocyte # (Auto) 0.02 0.00-0.02 K/uL Sodium Level 143 136-145 mmol/L Potassium Level 3.2 3.5-5.1 mmol/L Chloride Level 110 98-107 mmol/L Carbon Dioxide Level 23 21-32 mmol/L Anion Gap 10.0 3-11 mmol/L Blood Urea Nitrogen 13 7-18 mg/dl Creatinine 0.62 0.60-1.20 mg/dl Est Creatinine Clear Calc Drug Dose 109.8 ml/min Estimated GFR () 116.8 Estimated GFR (Non- 100.8 BUN/Creatinine Ratio 20.1 10-20 Random Glucose 69 70-99 mg/dl Calcium Level 8.6 8.5-10.1 mg/dl Total Bilirubin 0.8 0.2-1 mg/dl Aspartate Amino Transf (AST/SGOT) 15 15-37 U/L Alanine Aminotransferase (ALT/SGPT) 18 12-78 U/L Alkaline Phosphatase 74 45-117 U/L Total Protein 6.2 6.4-8.2 gm/dl Albumin 2.8 3.4-5.0 gm/dl Globulin 3.4 2.5-4.0 gm/dl Albumin/Globulin Ratio 0.8 0.9-2
--- NOTE | 2017-03-21 16:05 | Discharge Instructions ---
Discharge Instructions Date of Service Mar 21, 2017. Admission Reason for Admission: SBO Discharge Discharge Diagnosis / Problem: Small bowel obstruction, Hypokalemia Discharge Goals Goal(s): Improve function Activity Recommendations Activity Limitations: per Instructions/Follow-up section Shower/Bathe: no limitations . Instructions / Follow-Up Instructions / Follow-Up 56F with hx of slow moving bowels presents with severe abdominal pain and nausea and vomiting and evaluated/treated for small bowel obstruction Patient has been evaluated by gastroenterology service and general surgery service 03/19/17 KUB: Multiple loops of mildly dilated small bowel which may reflect a partial small bowel obstruction or ileus. No free air. No acute cardiopulmonary findings. CT ABD/Pelvis: Small bowel obstruction with the transition point seen within the right lower quadrant within the distal ileum. The small bowel loops are only mildly distended at this time. Chest CTA: There is no evidence of pulmonary embolus in the main, lobar, or segmental pulmonary arteries. There is no airspace consolidation or pleural effusion. Cardiomegaly. Abdomen X ray 03/20/17 1. No change in the mildly dilated gas and fluid-filled loops of small bowel consistent with a small bowel obstruction. 2. Nasogastric tube remains curled within the fundus of the stomach. Patient had NG tube removed this AM and then had made a bowel movement on Patient's AM labs on 03/21/17 with hypokalemia 3.2. Patient given 60 meq PO potassium Patient to be discharged to home. Follow up appointment 03/26/2017 11:20 AM Zee Ruano DO [facility] Patient's instructions: Patient should return to the hospital if acute abdominal pain, acute vomiting. Patient advised to avoid narcotic/opioid medications as these types of medications can slow bowl movements Vital Signs: Current Hospital Diet Patient's current hospital diet: Heart Healthy Discharge Diet Recommended Diet: AHA Diet (Heart Healthy) Pending Studies Studies pending at discharge: no Laboratory Results 03/21/17 07:17 Red Blood Count 4.09, Mean Corpuscular Volume 88.3, Mean Corpuscular Hemoglobin 29.6, Mean Corpuscular Hemoglobin Concent 33.5, Mean Platelet Volume 9.3, Neutrophils (%) (Auto) 59.6, Lymphocytes (%) (Auto) 33.2, Monocytes (%) (Auto) 5.5, Eosinophils (%) (Auto) 1.1, Basophils (%) (Auto) 0.3, Neutrophils # (Auto) 4.75, Lymphocytes # (Auto) 2.65, Monocytes # (Auto) 0.44, Eosinophils # (Auto) 0.09, Basophils # (Auto) 0.02 03/21/17 07:17 Test 03/19/17 09:22 03/19/17 11:35 03/20/17 05:25 03/21/17 07:17 Prothrombin Time 10.2 SECONDS (9.0-12.0) Prothromb Time International Ratio 1.0 (0.9-1.1) Activated Partial Thromboplast Time 22.6 SECONDS (21.0-31.0) Partial Thromboplastin Ratio 0.9 D-Dimer 1280 ug/L FEU (0-500) Direct Bilirubin 0.1 mg/dl (0-0.2) Total Creatine Kinase 60 U/L (26-192) Troponin I < 0.015 ng/ml (0-0.045) Lipase 67 U/L (73-393) Hepatitis C Antibody Screen NEG (NEG) Urine Color YELLOW Urine Appearance CLEAR (CLEAR) Urine pH 7.0 (4.5-7.5) Urine Specific [place] 1.025 (1.000-1.030) Urine Protein NEG (NEG) Urine Glucose (UA) NEG (NEG) Urine Ketones TRACE (NEG) Urine Occult Blood NEG (NEG) Urine Nitrite NEG (NEG) Urine Bilirubin NEG (NEG) Urine Urobilinogen NEG (NEG) Urine Leukocyte Esterase NEG (NEG) Phosphorus Level 3.1 mg/dl (2.5-4.9) Magnesium Level 2.1 mg/dl (1.8-2.4) White Blood Count 7.97 K/uL (4.8-10.8) Red Blood Count 4.09 M/uL (4.2-5.4) Hemoglobin 12.1 g/dL (12.0-16.0) Hematocrit 36.1 % (37-47) Mean Corpuscular Volume 88.3 fL (80-100) Mean Corpuscular Hemoglobin 29.6 pg (25-34) Mean Corpuscular Hemoglobin Concent 33.5 g/dl (32-36) Platelet Count 265 K/uL (130-400) Mean Platelet Volume 9.3 fL (7.4-10.4) Neutrophils (%) (Auto) 59.6 % Lymphocytes (%) (Auto) 33.2 % Monocytes (%) (Auto) 5.5 % Eosinophils (%) (Auto) 1.1 % Basophils (%) (Auto) 0.3 % Neutrophils # (Auto) 4.75 K/uL (1.4-6.5) Lymphocytes # (Auto) 2.65 K/uL (1.2-3.4) Monocytes # (Auto) 0.44 K/uL (0.11-0.59) Eosinophils # (Auto) 0.09 K/uL (0-0.5) Basophils # (Auto) 0.02 K/uL (0-0.2) RDW Standard Deviation 41.2 fL (36.4-46.3) RDW Coefficient of Variation 12.8 % (11.5-14.5) Immature Granulocyte % (Auto) 0.3 % Immature Granulocyte # (Auto) 0.02 K/uL (0.00-0.02) Anion Gap 10.0 mmol/L (3-11) Est Creatinine Clear Calc Drug Dose 109.8 ml/min Estimated GFR () 116.8 Estimated GFR (Non- 100.8 BUN/Creatinine Ratio 20.1 (10-20) Calcium Level 8.6 mg/dl (8.5-10.1) Total Bilirubin 0.8 mg/dl (0.2-1) Aspartate Amino Transf (AST/SGOT) 15 U/L (15-37) Alanine Aminotransferase (ALT/SGPT) 18 U/L (12-78) Alkaline Phosphatase 74 U/L (45-117) Total Protein 6.2 gm/dl (6.4-8.2) Albumin 2.8 gm/dl (3.4-5.0) Globulin 3.4 gm/dl (2.5-4.0) Albumin/Globulin Ratio 0.8 (0.9-2) Medical Emergencies . Who to Call and When: Medical Emergencies: If at any time you feel your situation is an emergency, please call 911 immediately. . Non-Emergent Contact Non-Emergency issues call your: Primary Care Provider Call Non-Emergent contact if: you have any medication questions . . "Provider Documentation" section prepared by Daniel Liz. . VTE Core Measure Inpt VTE Proph given/why not?: SCD's
--- NOTE | 2017-03-21 16:07 | Discharge Summary ---
Discharge Summary Date of Service Mar 21, 2017. Discharge Summary Admission Date: Mar 19, 2017 at 13:35 Discharge Date: Mar 21, 2017 Discharge Disposition: Home Principal Diagnosis: small bowel obstruction Secondary Diagnoses/Problems: hypokalemia Consultations: General Surgery Medication Reconciliation Continued Medications: Acetaminophen (Tylenol Arthritis Ext Rel) 650 Mg Tab 650 MG PO Q8H for Pain, TAB Aspirin (Aspir-81) 81 Mg Tab 1 TAB PO DAILY for 90 Days, #90 TAB 3 Refills Calcium Carbonate-Vitamin D (Calcium) 1 Tab Tab 1 TAB PO DAILY Cyanocobalamin (Vitamin B12) 1,000 Mcg Tab 1000 MG PO DAILY Ibuprofen (Ibuprofen) 600 Mg Tab 1 TAB PO Q8 for Pain Loratadine (Claritin) 10 Mg Tab 10 MG PO DAILY, 0 Refills Admission Information HPI (per Admitting provider): Pt is 56 y/o F with PMH hx colon polyps presented to ER with c/o N/V and abdominal pain began last night. Pt reports hx intermittent abdominal pain and N /V, slow moving bowels for past couple of years. Reports f/u [facility] - GI in past. Pt states current abdominal pain and vomiting is different than what she has experienced in the past. Reports that typically once she vomits nausea and abdominal pain resolve, however that didn't happen last night/today. Last night with nausea, emesis x 5 of yellow liquid. Reports mid and lower abdominal pain. Had couple BM's during the night and this morning loose BM. Tactile fevers last night, didn't take temperature. Last night tried Pepto-Bismol without relief. This am noticed darker color BM. Reports nothing to eat today. reports some intermittent knee pain and ABAD which she will use ibuprofen once daily x couple times a week, and uses Tylenol Arthritis most nights. Denies recent travel, ill contacts with GI illness. Denies hematemesis, hematochezia. Denies hx abdominal surgery in past. Denies ABAD, dizziness, syncope, vision changes, neck pain, CP, SOB, orthopnea, palpitations, cough, sore throat, choking, otalgia, rhinorrhea, paresthesias, weakness, rashes, urinary symptoms. Hx colonoscopy 2016 - Diverticulosis sigmoid colon. Colonoscopy 2015 - diverticulosis sigmoid colon. Today In ER: afebrile, BP: 123/57. WBC: 10.3. D-dimer: 1280. Abd/pelvis CT: SBO with transition point within RLQ within distal ileum. CT chest: no PE. Pt given 1L NSS, Pepcid 20mg IV, Zofran 4mg IV, Phenergan 25mg IV and NG tube ordered to be placed. Physical Exam (per Admitting): General Appearance: WD/WN, no apparent distress Head: normocephalic, atraumatic Eyes: normal inspection, PERRL, EOMI, sclerae normal ENT: hearing grossly normal, pharynx normal Neck: supple, no JVD, trachea midline Respiratory/Chest: chest non-tender, lungs clear, normal breath sounds, no respiratory distress, no accessory muscle use Cardiovascular: regular rate, rhythm, no edema, no murmur, normal peripheral pulses Abdomen/GI: soft, + pertinent finding (quit, hypoactive BS, + tenderness palpation periumbilical, RLQ, LLQ without rebound or guarding) Back: no CVA tenderness Extremities/Musculoskelatal: normal inspection, no pedal edema, non-tender Neurologic/Psych: alert, normal mood/affect, oriented x 3 Skin: normal color, warm/dry Hospital Course 56F with hx of slow moving bowels presents with severe abdominal pain and nausea and vomiting and evaluated/treated for small bowel obstruction Patient has been evaluated by gastroenterology service and general surgery service 03/19/17 KUB: Multiple loops of mildly dilated small bowel which may reflect a partial small bowel obstruction or ileus. No free air. No acute cardiopulmonary findings. CT ABD/Pelvis: Small bowel obstruction with the transition point seen within the right lower quadrant within the distal ileum. The small bowel loops are only mildly distended at this time. Chest CTA: There is no evidence of pulmonary embolus in the main, lobar, or segmental pulmonary arteries. There is no airspace consolidation or pleural effusion. Cardiomegaly. Abdomen X ray 03/20/17 1. No change in the mildly dilated gas and fluid-filled loops of small bowel consistent with a small bowel obstruction. 2. Nasogastric tube remains curled within the fundus of the stomach. Patient had NG tube removed this AM and then had made a bowel movement on Patient's AM labs on 03/21/17 with hypokalemia 3.2. Patient given 60 meq PO potassium Patient to be discharged to home. Follow up appointment 03/26/2017 11:20 AM Zee Ruano DO [facility] Patient's instructions: Patient should return to the hospital if acute abdominal pain, acute vomiting. Patient advised to avoid narcotic/opioid medications as these types of medications can slow bowl movements Total time spent on discharge = 60 minutes This includes examination of the patient, discharge planning, medication reconciliation, and communication with other providers. Discharge Instructions see above
[2017-03-21 16:44] VITALS: BP 141/85; PULSE 75; TEMP 36.9; O2SAT 99
== END 2017-03-21 17:14 | disposition home or self-care (01) | DRG 390 ==
LOC: C.EDB 08:52 → C.MSN 13:35 → ENRESERV 15:18
PROVIDERS: ADMIT Internal Medicine; ATTEND Hospitalist
DX: K56.600 Partial intestinal obstruction, unspecified as to cause (principal); K57.30 Diverticulosis of large intestine without perforation or abscess without bleeding; H81.10 Benign paroxysmal vertigo, unspecified ear; K58.9 Irritable bowel syndrome, unspecified; Z83.3 Family history of diabetes mellitus; E87.6 Hypokalemia; Z86.010 Personal history of colon polyps

== ENCOUNTER → 2017-04-16 | Outpatient (CLI) | payer OTHER ==
[~2017-04-16] MED LIST changes: +ACET-1487 PO; +CALC-51 PO; +CYAN100020 PO; -IBUP-1459 PO; +MTR/600 PO
--- NOTE | 2017-04-16 12:03 | DIAGNOSTIC IMAGING REPORT ---
SMALL BOWEL STUDY CLINICAL HISTORY: Small bowel obstruction COMPARISON STUDY: CT scan dated 03/19/2017 FLUOROSCOPY TIME: 0.7 minutes. NUMBER OF FLUOROSCOPIC IMAGES: 13 FINDINGS: The patient was administered Enterovue a small bowel follow-through was performed. Contrast reached the cecum at 1 hour. There is no evidence for abnormal loop separation. There are no abnormally dilated loops of jejunum or ileum. Spot films of the small bowel and terminal ileum were normal. IMPRESSION: Normal study Electronically signed by: Philip Zapata M.D. 04/16/2017 12:02 PM Dictated Date/Time: 04/16/2017 12:00 PM
== END | disposition home or self-care (01) ==
LOC: C.RAD 10:17
PROVIDERS: ATTEND Student in an Organized Health Care Education/Training Program
DX: Z87.19 Personal history of other diseases of the digestive system (principal)